=== PATIENT | male | born 1975 ===

== ENCOUNTER 2023-01-02 12:03 | Inpatient (IN) | payer OTHER ==
[~2023-01-02] VITALS: Ht 172.7 cm; Wt 76.7 kg
[2023-01-03] MEDS ORDERED: LEVOTHYROXINE125 MC1 PO (11:53)
[2023-01-03] MEDS ORDERED: LOSARTAN POTAS100 MG PO (11:54)
[2023-01-03] MEDS ORDERED: ADULT LOW DOSE81 M1 PO (11:54)
[2023-01-03] MEDS ORDERED: PANTOPRAZOLE SO40 M2 PO (11:54)
[2023-01-03] MEDS ORDERED: FOLIC PO (11:55)
[2023-01-03] MEDS ORDERED: IRO PLEX PO (11:55)
[2023-01-03] MEDS ORDERED: FAMOTI PO (11:56)
[2023-01-03] MEDS ORDERED: SIMVAST PO (11:56)
[2023-01-09] MEDS ORDERED: FAMOTIDINE40 MG (09:32)
[2023-01-09] MEDS ORDERED: FOLIC ACID1 MG (09:32)
[2023-01-13] MEDS ORDERED: SIMVASTATIN20 MG (13:38)
[2023-01-13] MEDS ORDERED: IRO-PLEX LIQUI120 ML (13:54)
[2023-01-13] MEDS ORDERED: HYOSCYAMINE0.125 M1 SL (13:56)
[2023-01-13] MEDS ORDERED: PERCOCET 5-3251 EACH PO (13:57)
[2023-01-13] MEDS ORDERED: PEPCID AC20 MG PO (13:57)
== END 2023-01-13 15:16 | disposition home or self-care (01) | DRG 331 ==
LOC: O/R 01-09 07:01 → SURH 01-09 07:01 → SURG 01-09 11:15 → SURH 01-09 13:14
PROVIDERS: ADMIT Surgery; ATTEND Surgery
PROC: 07BB4ZZ Excision of Mesenteric Lymphatic, Percutaneous Endoscopic Approach (ICD-10-PCS; 2023-01-09)
PROC: 0DTF4ZZ Resection of Right Large Intestine, Percutaneous Endoscopic Approach (ICD-10-PCS; principal; 2023-01-09 11:45)
DX: C18.2 Malignant neoplasm of ascending colon (principal); K63.5 Polyp of colon; R97.0 Elevated carcinoembryonic antigen [CEA]; R59.0 Localized enlarged lymph nodes; I10 Essential (primary) hypertension